=== PATIENT | female | born 1990 | race Caucasian/White ===

== ENCOUNTER 2017-06-28 13:13 | Day surgery (SDC) | payer BC ==
[2017-06-23 14:40] VITALS: BP 132/86
[~2017-06-28] VITALS: Ht 165.1 cm; Wt 106.7 kg
[~2017-06-28 13:13] MED LIST: BUPIVACAINE/PF 0.25% ONE; EPINEPHRINE 1 MG/ML, 1ML ONE; LORA-445 PO; None per pt; ZOLP-413 PO
[2017-06-28] MEDS ORDERED: LACTATED RINGERS 1,000 ML IV SCH (13:48)
[2017-06-28 13:52] LABS: HCG UR LOT HCG7030192
[2017-06-28 14:06] LABS: HCG UR OBC PASS
[2017-06-28] MEDS ORDERED: FENTANYL PF 100 MCG/2ML ONE (14:06)
[2017-06-28] MEDS ORDERED: MIDAZOLAM 1 MG/ML, 2ML ONE (14:06)
[2017-06-28] MEDS ORDERED: PROPOFOL 10 MG/ML, 20ML ONE (14:07)
[2017-06-28] MEDS ORDERED: ONDANSETRON 2MG/ML, 2ML ONE (14:07)
[2017-06-28] MEDS ORDERED: DEXAMETHASONE 4 MG/ML, 1ML ONE ×2 (14:07)
[2017-06-28] MEDS ORDERED: ROCURONIUM 10 MG/ML ONE (14:07)
[2017-06-28] MEDS ORDERED: CEFAZOLIN 1,000 MG ONE ×2 (14:07)
[2017-06-28] MEDS ORDERED: BUPIVACAINE/PF 0.5% ONE (14:07)
[2017-06-28] MEDS ORDERED: EPHEDRINE 50 MG/ML, 1ML IVPush PRN (14:30)
[2017-06-28] MEDS ORDERED: MEPERIDINE/PF 25MG/0.5ML IVPush PRN (14:30)
[2017-06-28] MEDS ORDERED: ALBUTEROL SULFATE 2.5 MG/3 ML NPPB PRN (14:30)
[2017-06-28] MEDS ORDERED: ACETAMINOPHEN 325 MG TABLET PO PRN (14:30)
[2017-06-28] MEDS ORDERED: FENTANYL PF 100 MCG/2ML IV PRN (14:30)
[2017-06-28] MEDS ORDERED: LABETALOL 5MG/ML, 20ML IV PRN (14:30)
[2017-06-28] MEDS ORDERED: ONDANSETRON 2MG/ML, 2ML IVPush PRN (14:30)
[2017-06-28] MEDS ORDERED: HYDROmorphone 1 MG/ML, 1ML IV PRN (14:30)
[2017-06-28] MEDS ORDERED: PROMETHAZINE 25 MG/ML, 1ML IV PRN (14:30)
[2017-06-28] MEDS ORDERED: hydrALAzine 20 MG/ML, 1ML IV PRN (14:30)
[2017-06-28] MEDS ORDERED: METOPROLOL 1 MG/ML, 5ML IV PRN (14:30)
[2017-06-28] MEDS ORDERED: OXYcodone 5 MG/5 ML ORAL.SOL UDC PO PRN (14:30)
[2017-06-28] MEDS ORDERED: NEOSTIGMINE 1 MG/ML, 10ML ONE (15:05)
[2017-06-28] MEDS ORDERED: GLYCOPYRROLATE 0.2MG/1ML, 5ML ONE (15:05)
[2017-06-28] MEDS ORDERED: METOCLOPRAMIDE 5 MG/ML, 2ML ONE (15:05)
[2017-06-28] MEDS ORDERED: OXYcodone 5 MG/5 ML ORAL.SOL UDC ONE (16:15)
== END 2017-06-28 17:40 ==
LOC: OUT 13:13
PROVIDERS: ATTEND Orthopaedic Surgery
DX: M75.02 Adhesive capsulitis of left shoulder (principal); M24.112 Other articular cartilage disorders, left shoulder; F41.9 Anxiety disorder, unspecified; E66.01 Morbid (severe) obesity due to excess calories; Z68.41 Body mass index [BMI] 40.0-44.9, adult
CPT/HCPCS: 29822; 29825; 81025; J0171; J0690; J1100; J2250; J2405; J2704; J2710; J2765; J3010; J3490